=== PATIENT | male | born 1995 | race Two or more races ===

== ENCOUNTER → 2017-01-03 | Outpatient (CLI) | payer MEDICAID, OTHER ==
[2017-01-03 17:55] VITALS: BP 122/63
== END ==
LOC: EDSTATUS 18:28 → RAD 18:31
PROVIDERS: ATTEND Physician Assistant
DX: N20.9 Urinary calculus, unspecified (principal)
CPT/HCPCS: 76380

== ENCOUNTER 2018-03-06 05:22 | Emergency (ER) | payer MEDICAID ==
[2018-03-06 05:48] LABS: ABSOLUTE BASOPHILS # (AUTO) 0.1 10^3/uL (0.0-0.2); ABSOLUTE EOSINOPHILS # (AUTO) 0.5 10^3/uL (0.0-0.6); ABSOLUTE LYMPHOCYTES (AUTO) 4.4 10^3/uL (0.5-4.7); ABSOLUTE MONOCYTES (AUTO) 0.7 10^3/uL (0.1-1.4); BASOPHILS % (AUTO) 0.7 % (0-2); EOSINOPHILS % (AUTO) 4.4 % (0-6); HEMATOCRIT 44.4 % (37.9-51.0); HEMOGLOBIN 15.1 g/dL (13.5-17.0); LYMPHOCYTES % (AUTO) 41.4 % (13-45); MEAN CORPUSCULAR HEMOGLOBIN 29.9 pg (27.0-33.4); MEAN CORPUSCULAR HGB CONC 34.1 g/dL (32.0-36.0); MEAN CORPUSCULAR VOLUME 88 fl (80-97); MONOCYTES % (AUTO) 6.6 % (3-13); PLATELET COUNT 287 10^3/uL (150-450); RED BLOOD COUNT 5.06 10^6/uL (4.35-5.55); RED CELL DISTRIBUTION WIDTH 12.9 % (11.5-14.0); SEGMENTED NEUTROPHILS % (AUTO) 46.9 % (42-78); TOTAL CELLS COUNTED % (AUTO) 100 %; WHITE BLOOD COUNT 10.7 10^3/uL (4.0-10.5)
[2018-03-06 06:05] LABS: ALANINE AMINOTRANSFERASE 21 U/L (21-72); ALBUMIN 4.7 g/dL (3.5-5.0); ALKALINE PHOSPHATASE 89 U/L (38-126); ANION GAP 16 (5-19); ASPARTATE AMINO TRANSFERASE 22 U/L (17-59); BILIRUBIN,DIRECT 0.3 mg/dL (0.0-0.4); BILIRUBIN,TOTAL 0.8 mg/dL (0.2-1.3); BLOOD UREA NITROGEN 10 mg/dL (7-20); CALCIUM 10.2 mg/dL (8.4-10.2); CARBON DIOXIDE 25 mmol/L (22-30); CHLORIDE 105 mmol/L (98-107); GLUCOSE 122 mg/dL (75-110); LIPASE 86.5 U/L (23-300); POTASSIUM 4.2 mmol/L (3.6-5.0); TOTAL PROTEIN 7.8 g/dL (6.3-8.2)
[2018-03-06 06:25] LABS: APPEARANCE,URINE CLEAR; BILIRUBIN,URINE NEGATIVE (NEGATIVE); COLOR,URINE YELLOW; GLUCOSE, URINE NEGATIVE (NEGATIVE); KETONES,URINE TRACE mg/dL (NEGATIVE); LEUKOCYTE ESTERASE,URINE NEGATIVE (NEGATIVE); NITRITE,URINE NEGATIVE (NEGATIVE); PROTEIN,URINE NEGATIVE (NEGATIVE); URINE SPECIFIC GRAVITY 1.018; UROBILINOGEN,URINE NEGATIVE mg/dL (<2.0)
--- NOTE | 2018-03-06 07:05 | ER Document Report ---
ED General - General TRAVEL OUTSIDE OF THE [place] IN LAST 30 DAYS: No <ENRRIQUE PERDOMO - Last Filed: 03/06/18 07:05> <MIRANDA MANN - Last Filed: 03/06/18 08:42> - General Chief Complaint: Possible Kidney Stone Stated Complaint: FLANK PAIN Time Seen by Provider: 03/06/18 07:04 Notes: Patient is a 22-year-old male who presents emergency department the chief complaint of right flank pain that started this morning about 3 AM. Patient states that it is a sharp stabbing pain in his right flank radiating to his right lower quadrant. He denies any fevers. He admits to nausea without vomiting. Denies any diarrhea, constipation. He admits to difficulty with urination for 1 week. Patient states that he had pain relief with the Toradol he received via EMS. Patient states that he does take medications for depression and seasonal allergies. Does have a history of kidney stones about 10 years ago. (MIRANDA MANN) - Related Data Allergies/Adverse Reactions: No Known Allergies Allergy (Verified 10/05/16 10:13) Past Medical History - Social History Smoking Status: Never Smoker Chew tobacco use (# tins/day): No Frequency of alcohol use: None Drug Abuse: None Family History: Reviewed & Not Pertinent Patient has suicidal ideation: No Patient has homicidal ideation: No Renal/ Medical History: Denies: Hx Peritoneal Dialysis Psychiatric Medical History: Reports: Hx Depression - on Lexapro for 9 years Past Surgical History: Reports: Hx Oral Surgery - Immunizations Immunizations up to date: Yes Hx Diphtheria, Pertussis, Tetanus Vaccination: Yes <ENRRIQUE PERDOMO - Last Filed: 03/06/18 07:05> Review of Systems - Review of Systems Constitutional: No symptoms reported Cardiovascular: No symptoms reported Respiratory: No symptoms reported Gastrointestinal: No symptoms reported Genitourinary: See HPI Male Genitourinary: No symptoms reported Musculoskeletal: No symptoms reported -: Yes All other systems reviewed and negative <MIRANDA MANN - Last Filed: 03/06/18 08:42> Physical Exam <ENRRIQUE PERDOMO - Last Filed: 03/06/18 07:05> <MIRANDA MANN - Last Filed: 05/08/18 08:42> - Vital signs Vitals: Temp Pulse Resp BP Pulse Ox 98.0 F 85 16 118/75 98 03/06/18 05:23 03/06/18 05:23 03/06/18 05:23 03/06/18 05:23 03/06/18 05:23 - Notes Notes: PHYSICAL EXAM GENERAL: Alert, interacts well. HEAD: Normocephalic, atraumatic. EYES: Pupils equal, round, and reactive to light. Extraocular movements intact. ENT: Oral mucosa moist, tongue midline. LUNGS: Clear to auscultation bilaterally, no wheezes, rales, or rhonchi. No respiratory distress. HEART: Regular rate and rhythm. No murmurs, gallops, or rubs. ABDOMEN: Soft, nondistended, nontender. No guarding, rebound, or rigidity.. Bowel sounds present in all 4 quadrants. Back: No evidence of CVA tenderness bilaterally. The superficial muscle tenderness to palpation. No spinous process tenderness. NEUROLOGICAL: Alert and oriented x4. Normal speech. PSYCH: Normal affect, normal mood. SKIN: Warm, dry, normal turgor. No rashes or lesions noted. (MIRANDA MANN) Course - Laboratory Result Diagrams: 03/06/18 05:00 03/06/18 05:00 <ENRRIQUE PERDOMO - Last Filed: 03/06/18 07:05> - Laboratory Result Diagrams: 03/06/18 05:00 03/06/18 05:00 - Diagnostic Test Radiology reviewed: Image reviewed, Reports reviewed <MIRANDA AMNN - Last Filed: 03/06/18 08:42> - Re-evaluation Re-evalutation: 03/06/18 08:38 Presents with findings consistent with acute nephrolithiasis. Urinalysis does show hematuria. Laboratory otherwise unremarkable. Pain was able to be controlled here in the emergency department. Patient is tolerating oral intake. Clinical history is not consistent with an acute abdominal aneurysm or dissection, VT, or pulmonary embolus. Urinalysis does not show findings consistent with an infected stone. Vitals have remained within normal limits. Patient will be discharged with recommendations to follow-up with urology, pain medications, and return precautions. They are in agreement with this plan and verbalized indications return to emergency department. (MIRANDA MANN) - Vital Signs Vital signs: Temp Pulse Resp BP Pulse Ox 98.0 F 85 16 118/75 98 03/06/18 05:23 03/06/18 05:23 03/06/18 05:23 03/06/18 05:23 03/06/18 05:23 - Laboratory Laboratory results interpreted by me: 03/06/18 03/06/18 03/06/18 05:00 05:00 05:42 WBC 10.7 H Sodium 146.0 H Glucose 122 H Urine Ketones TRACE H Urine Blood MODERATE H Discharge <ENRRIQUE PERDOMO - Last Filed: 03/06/18 07:05> <MIRANDA MANN - Last Filed: 03/06/18 08:42> - Discharge Clinical Impression: Kidney stone Condition: Good Disposition: HOME, SELF-CARE Additional Instructions: Please follow-up with your urologist in the next 3-5 days. Please tell them that you do have a kidney stone in your left kidney. If they require to see the CT scan, you can contact with medical records at [facility] KIDNEY STONE: You are passing or have passed a kidney stone. These stones are usually due to increased calcium or uric acid concentrations in your urine. Stones within the kidney itself are not painful. The pain occurs as the stone leaves the kidney to pass down the long tube, called the ureter, leading to the bladder. If the stone is small, it will usually pass by itself. Most patients can pass the stone at home. You will usually receive medications for pain, nausea or vomiting, and sometimes a medication to assist in passing the kidney stone. However, if the pain is very severe or if vomiting prevents you from taking oral pain medications, you may need to return for further treatment. Drink three or four quarts of fluids per day. You will be given pain medication (if needed) and urine strainers. Strain all your urine to see if the stone passes. If your doctor has asked you to bring the stone in for analysis, return with the stone once it has passed. Return if pain or vomiting become severe, if you develop a high fever, if you are unable to pass your urine, or if other unusual symptoms occur. TORADOL INJECTION: You have been given an injection of ketorolac tromethamine (Toradol). This is an excellent, safe drug for pain control. It also has potent antiinflammatory action. You should have significant pain relief within about one hour. Toradol is not addicting and is non-sedating. It does not interfere with driving or work. Call or return if you develop itching, hives, shortness of breath, or rash. FLOMAX (tamsulosin): Flomax is a medicine that shrinks the prostate gland. It helps relieve symptoms of benign prostatic hypertrophy, such as frequent urination, weak stream, and inadequate emptying. It has been shown to dilate the ureter (tube leading from the kidney to the bladder) and help in passing kidney stones Flomax usually causes no side effects. You may notice slight tiredness and dizziness for a few days. Some patients develop nasal congestion. Rarely, impotence can occur. If the symptoms are bothersome and don't improve with continued use, call your doctor. Contact your doctor or return if you have fainting spells, severe weakness or dizziness, shortness of breath, or rash. FOLLOW-UP CARE: If you have been referred to a physician for follow-up care, call the physician s office for an appointment as you were instructed or within the next two days. If you experience worsening or a significant change in your symptoms, notify the physician immediately or return to the Emergency Department at any time for re-evaluation. Prescriptions: Ketorolac Tromethamine [Toradol 10 mg Tablet] 10 mg PO Q6HP PRN #20 tablet PRN Reason: Tamsulosin HCl [Flomax 0.4 mg Cap.sr] 0.4 mg PO DAILY #7 cap.sr.24h Referrals: VICTOR HUGO YATES MD [Primary Care Provider] - Follow up in 1 week
[2018-03-06] MEDS ORDERED: NORMAL SALINE 1000 ML 1,000 ML IV ONE (07:13)
--- NOTE | 2018-03-06 08:21 | RADIOLOGY REPORT (SQ) ---
EXAM DESCRIPTION: CT LTD RENAL STONE PROTOCOL ON COMPLETED DATE/TIME: 03/06/2018 7:46 am REASON FOR STUDY: right flank pain COMPARISON: None. TECHNIQUE: CT scan of the abdomen and pelvis performed without intravenous or oral contrast. Images reviewed with lung, soft tissue, and bone windows. Reconstructed coronal and sagittal MPR images revi ewed. All images stored on PACS. All CT scanners at this facility use dose modulation, iterative reconstruction, and/or weight based d osing when appropriate to reduce radiation dose to as low as reasonably achievable (ALARA). [facility]: Dose Right [facility]: CareDose [facility]: Dose Right [facility]: Teradose 4D [facility]: [employer] RADIATION DOSE: CT Rad equipment meets quality standard of care and radiation dose reduction techniq ues were employed. CTDIvol: 6.3 mGy. DLP: 322 mGy-cm.mGy. LIMITATIONS: None. FINDINGS: LOWER CHEST: No significant findings. No nodules or infiltrates. NON-CONTRASTED LIVER, SPLEEN, ADRENALS: Evaluation limited by lack of IV contrast. No identified sign ificant masses. PANCREAS: No masses. No peripancreatic inflammatory changes. GALLBLADDER: No identified stones by CT criteria. No inflammatory changes to suggest cholecystitis. RIGHT KIDNEY AND URETER: Hydronephrosis and hydroureter. Distal right 4 mm ureteral stone few cm pr oximal to the bladder. LEFT KIDNEY AND URETER: No suspicious masses. Assessment limited by lack of IV contrast. 8 mm nonob structing calculus inferior pole No hydronephrosis or hydroureter. AORTA AND RETROPERITONEUM: No aneurysm. No retroperitoneal masses or adenopathy. BOWEL AND PERITONEAL CAVITY: No obvious masses or inflammatory changes. No free fluid. APPENDIX: Normal. PELVIS, BLADDER, AND ABDOMINAL WALL:No abnormal masses. No free fluid. Bladder normal. BONES: No significant findings. OTHER: No other significant finding. IMPRESSION: Right obstructive uropathy secondary to distal right ureteral stone. Left nephrolithias is. COMMENT: Quality ID # [id number]: Final reports with documentation of one or more dose reduction techniques (e.g., Automated exposure control, adjustment of the mA and/or kV according to patient size, use of iterative reconstruction technique) TECHNICAL DOCUMENTATION: JOB ID: [id number] [employer]- All Rights Reserved Reading location - IP/workstation name: [email or web address]
[2018-03-06 09:00] VITALS: BP 125/85
== END 2018-03-06 08:59 | disposition home or self-care (01) ==
LOC: ER 05:22
DX: N20.0 Calculus of kidney (principal); R10.31 Right lower quadrant pain; R11.0 Nausea
CPT/HCPCS: 99284; 96360; 96361; 96374; 96375; 36415; 83690; 85025; 80053; 81001; 76380; J7030; J1170; J1885; J2405

== ENCOUNTER 2018-03-06 22:01 | Emergency (ER) | payer MEDICAID ==
[2018-03-06 22:08] VITALS: BP 146/85
[2018-03-06] MEDS ORDERED: HYDROMORPHONE HCL INJ/PF 2 MG/ML AMPULE IV ONE (23:38)
[2018-03-06] MEDS ORDERED: ONDANSETRON HCL INJ/PF 4 MG/2 ML SDV IV ONE (23:38)
[2018-03-06] MEDS ORDERED: NORMAL SALINE 1000 ML 1,000 ML IV ONE (23:38)
[2018-03-06] MEDS ORDERED: KETOROLAC TROMETHAMINE INJ/PF 30 MG/1 ML SDV IV ONE (23:38)
--- NOTE | 2018-03-06 23:39 | ER Document Report ---
ED General - General Mode of Arrival: Ambulatory Information source: Patient TRAVEL OUTSIDE OF THE [place] IN LAST 30 DAYS: No - General Chief Complaint: Possible Kidney Stone Stated Complaint: KIDEY PAIN Time Seen by Provider: 03/06/18 23:20 Notes: 22 y.o male with a PMHx of Kidney stone 10 years ago, GERD and ADHD presents to the ED with known 4mm RT ureteral stone. Pt reports that pain began around 0300 this morning and came to the hospital where he had imaging and diagnosed with the stone and given Toradol in the ED. Pt was discharged home with Toradol tablets. He reports worsening pain without much relief from the Toradol tablets. Pt also complains of nausea. He denies any known fever. Pt denies any PSHx. Pt's urologist Dr. Pfeiffer. ([facility]) - Related Data Allergies/Adverse Reactions: No Known Allergies Allergy (Verified 10/05/16 10:13) Past Medical History - General Information source: Patient, Parent - Social History Smoking Status: Unknown if Ever Smoked Family History: Reviewed & Not Pertinent Patient has suicidal ideation: No Patient has homicidal ideation: No Renal/ Medical History: Denies: Hx Peritoneal Dialysis Psychiatric Medical History: Reports: Hx Depression - on Lexapro for 9 years Past Surgical History: Reports: Hx Oral Surgery - Immunizations Immunizations up to date: Yes Hx Diphtheria, Pertussis, Tetanus Vaccination: Yes Review of Systems - Review of Systems Constitutional: See HPI. denies: Fever EENT: No symptoms reported Cardiovascular: No symptoms reported Respiratory: No symptoms reported Gastrointestinal: See HPI, Nausea Genitourinary: See HPI, Flank pain - RT flank pain with known kidney stone Male Genitourinary: No symptoms reported Musculoskeletal: No symptoms reported Skin: No symptoms reported Hematologic/Lymphatic: No symptoms reported Neurological/Psychological: No symptoms reported -: Yes All other systems reviewed and negative Physical Exam - Vital signs Vitals: Temp Pulse Resp BP Pulse Ox 98.0 F 91 20 146/85 H 99 03/06/18 22:07 03/06/18 22:07 03/06/18 22:07 03/06/18 22:07 03/06/18 22:07 - Notes Notes: Physical Exam: General: Alert, appears well. HEENT: Normocephalic. Atraumatic. PERRL. Extraocular movements intact. Oropharynx clear. Neck: Supple. Non-tender. Respiratory: No respiratory distress. Clear and equal breath sounds bilaterally. Cardiovascular: Regular rate and rhythm. Abdominal: RT flank pain, RT abdominal pain. No distension. Normal Bowel Sounds. Back: Non-tender. No deformity or step off. Extremities: Moves all four extremities. Upper extremities: Normal inspection. Normal ROM. Lower extremities: Normal inspection. No edema. Normal ROM. Neurological: Normal cognition. AAOx4. Normal speech. (GWENDOLYN SULLIVAN) Course - Re-evaluation Re-evalutation: 03/07/18 01:36 Patient's urine does not show any sign of infection there is very little RBCs suggesting significant obstruction. The patient is quite comfortable at this time. He will be discharged home with narcotic medication for pain control and Zofran for nausea. He will continue taking his Toradol tablets. He does have a private urologist that he follows up with with the [facility] group. (KLEVER ZIEGLER) - Vital Signs Vital signs: Temp Pulse Resp BP Pulse Ox 98.0 F 91 20 146/85 H 99 03/06/18 22:07 03/06/18 22:07 03/06/18 22:07 03/06/18 22:07 03/06/18 22:07 - Laboratory Laboratory results interpreted by me: 03/06/18 23:58 Urine Ketones 20 H Discharge - Discharge Clinical Impression: Kidney stone, Renal colic on right side Condition: Stable Disposition: HOME, SELF-CARE Additional Instructions: Kidney Stone You are passing or have passed a kidney stone. These stones are usually due to increased calcium or uric acid concentrations in your urine. Stones within the kidney itself are not painful. The pain occurs as the stone leaves the kidney to pass down the long tube, called the ureter, leading to the bladder. If the stone is small, it will usually pass by itself. Most patients can pass the stone at home. You will usually receive medications for pain, nausea or vomiting, and sometimes a medication to assist in passing the kidney stone. However, if the pain is very severe or if vomiting prevents you from taking oral pain medications, you may need to return for further treatment. Drink three or four quarts of fluids per day. You will be given pain medication (if needed) and urine strainers. Strain all your urine to see if the stone passes. If your doctor has asked you to bring the stone in for analysis, return with the stone once it has passed. Return if pain or vomiting become severe, if you develop a high fever, if you are unable to pass your urine, or if other unusual symptoms occur. Continue taking the Toradol as prescribed. Take the narcotic pain medication and nausea medication as dispensed and prescribed if needed. Drink plenty of fluids and strain urine. Follow-up with your urologist this week. RETURN TO THE EMERGENCY ROOM IF ANY NEW OR WORSENING SYMPTOMS. Prescriptions: Ondansetron [Zofran Odt 4 mg Tablet] 1 - 2 tab PO Q4H #10 tab.rapdis Oxycodone HCl/Acetaminophen [Percocet 5-325 mg Tablet] 1 tab PO ASDIR PRN #15 tablet PRN Reason: Referrals: VICTOR HUGO YATES MD [Primary Care Provider] - Follow up as needed Scribe Attestation: 03/07/18 01:42 I personally performed the services described in the documentation, reviewed and edited the documentation which was dictated to the scribe in my presence, and it accurately records my words and actions. (KLEVER ZIEGLER) Scribe Documentation - Scribe Written by Vikas:: Vikas Pena 03/06/18 [id number] acting as scribe for :: Reed
[2018-03-07 00:33] LABS: APPEARANCE,URINE CLEAR; BILIRUBIN,URINE NEGATIVE (NEGATIVE); COLOR,URINE STRAW; GLUCOSE, URINE NEGATIVE (NEGATIVE); KETONES,URINE 20 mg/dL (NEGATIVE); LEUKOCYTE ESTERASE,URINE NEGATIVE (NEGATIVE); NITRITE,URINE NEGATIVE (NEGATIVE); PROTEIN,URINE NEGATIVE (NEGATIVE); UROBILINOGEN,URINE NEGATIVE mg/dL (<2.0)
[2018-03-07] MEDS ORDERED: ONDANSETRON ODT 4 MG TAB (6 TAB/ER DISP) PO PRN (01:39)
[2018-03-07] MEDS ORDERED: HYDROCODONE/ACETAMINOPHEN 5-325 MG (6 TAB/ER DISP) PO PRN (01:39)
== END 2018-03-07 02:32 | disposition home or self-care (01) ==
LOC: ER 22:01
DX: N20.0 Calculus of kidney (principal); R11.0 Nausea; K21.9 Gastro-esophageal reflux disease without esophagitis; F90.9 Attention-deficit hyperactivity disorder, unspecified type; Z79.899 Other long term (current) drug therapy
CPT/HCPCS: 99284; 96361; 96374; 96375; 81001; J1885; J1170; J2405; J7030